=== PATIENT | female | born 1970 | race Caucasian/White ===

== ENCOUNTER 2018-07-17 12:08 | Inpatient (IN) | payer OTHER ==
[2018-07-17 13:39] LABS: ADD MAN DIFF? NO
[2018-07-17 13:41] LABS: BASOPHIL # 0.1 10^3/ul (0.0-0.1); BASOPHILS % 0.7 % (0.0-2.0); EOSINOPHILS # 0.1 10^3/ul (0.0-0.5); EOSINOPHILS % 1.1 % (0.0-7.0); HEMOGLOBIN 11.9 g/dl (12.0-16.0); LYMPHOCYTES # 1.7 10^3/ul (0.8-2.9); LYMPHOCYTES % 17.7 % (15.0-51.0); MEAN CORPUSCULAR HEMOGLOBIN 29.2 pg (29.0-33.0); MEAN CORPUSCULAR HGB CONC 32.2 g/dl (32.0-37.0); MEAN CORPUSCULAR VOLUME 90.9 fl (82.0-101.0); MEAN PLATELET VOLUME 8.8 fl (7.4-10.4); MONOCYTE # 0.7 10^3/ul (0.3-0.9); MONOCYTES % 7.3 % (0.0-11.0); NEUTROPHILS % 72.8 % (39.0-77.0); PLATELET COUNT 441 10^3/UL (140-415); RED BLOOD COUNT 4.07 10^6/ul (4.20-5.40); RED CELL DISTRIBUTION WIDTH 13.3 % (11.5-14.5)
[2018-07-17 13:41] LABS: WHITE BLOOD COUNT 9.6 10^3/ul (4.8-10.8)
[2018-07-17] MEDS: SOD CHLORIDE 0.9% 100 ML ×2 (13:46→18:10)
[2018-07-17] MEDS: IOHEXOL 300MG/ML 150 ML BTL ×2 (13:46→18:10)
[2018-07-17 14:01] LABS: ALANINE AMINOTRANSFERASE 17 IU/L (13-69); ALBUMIN 3.2 g/dl (3.3-4.9); ALKALINE PHOSPHATASE 84 IU/L (42-121); ANION GAP 8 (5-13); ASPARTATE AMINO TRANSFERASE 9 IU/L (15-46); BILIRUBIN,INDIRECT 0.2 mg/dl (0-1.1); BILIRUBIN,TOTAL 0.2 mg/dl (0.2-1.3); BLOOD UREA NITROGEN 11 mg/dl (7-20); CALCIUM 8.5 mg/dl (8.4-10.2); CARBON DIOXIDE 26 mmol/L (21-31); CHLORIDE 109 mmol/L (97-110); CREATININE 0.52 mg/dl (0.44-1.00); Estimated GFR > 60 mL/min (>60); GLUCOSE 87 mg/dl (70-220); INR 1.06; POTASSIUM 3.7 mmol/L (3.5-5.1); PROTIME 13.9 Sec (11.9-14.9); PT RATIO 1.1; SODIUM 143 mmol/L (135-144); TOTAL PROTEIN 6.1 g/dl (6.1-8.1)
[2018-07-17 14:02] LABS: PARTIAL THROMBOPLASTIN TIME 34.4 Sec (23.0-35.0)
[2018-07-17] MEDS ORDERED: NACL 0.9% 3 ML SYG IV (18:00)
[2018-07-17] MEDS ORDERED: IPRATROPIUM (NEB) 0.5 MG/2.5 ML AMP HHN (18:00)
[2018-07-17] MEDS ORDERED: LEVALBUTEROL (NEB) 1.25 MG/0.5 ML AMP HHN (18:00)
[2018-07-17] MEDS ORDERED: morphine 2 MG INJ IV (18:00)
[2018-07-17] MEDS ORDERED: ONDANSETRON 4 MG INJ IV (18:00)
[2018-07-17] MEDS ORDERED: HYDROCODONE/APAP (5/325) TAB PO (18:00)
[2018-07-17] MEDS: IPRATROPIUM (NEB) 0.5 MG/2.5 ML AMP HHN (20:00)
[2018-07-17] MEDS: LEVALBUTEROL (NEB) 1.25 MG/0.5 ML AMP HHN (20:00)
[2018-07-18 05:45] LABS: ADD MAN DIFF? NO
[2018-07-18 05:58] LABS: WHITE BLOOD COUNT 8.2 10^3/ul (4.8-10.8)
[2018-07-18 05:58] LABS: BASOPHIL # 0.1 10^3/ul (0.0-0.1); EOSINOPHILS # 0.2 10^3/ul (0.0-0.5); EOSINOPHILS % 2.3 % (0.0-7.0); HEMATOCRIT 35.7 % (37.0-47.0); HEMOGLOBIN 11.3 g/dl (12.0-16.0); LYMPHOCYTES # 1.7 10^3/ul (0.8-2.9); LYMPHOCYTES % 20.6 % (15.0-51.0); MEAN CORPUSCULAR HEMOGLOBIN 28.5 pg (29.0-33.0); MEAN CORPUSCULAR HGB CONC 31.7 g/dl (32.0-37.0); MEAN CORPUSCULAR VOLUME 90.2 fl (82.0-101.0); MEAN PLATELET VOLUME 9.3 fl (7.4-10.4); MONOCYTE # 0.7 10^3/ul (0.3-0.9); MONOCYTES % 8.9 % (0.0-11.0); NEUTROPHIL # 5.5 10^3/ul (1.6-7.5); NEUTROPHILS % 66.8 % (39.0-77.0); PLATELET COUNT 419 10^3/UL (140-415); RED BLOOD COUNT 3.96 10^6/ul (4.20-5.40); RED CELL DISTRIBUTION WIDTH 13.4 % (11.5-14.5)
[2018-07-18 06:15] LABS: ALANINE AMINOTRANSFERASE 10 IU/L (13-69); ALBUMIN 3.8 g/dl (3.3-4.9); ALBUMIN/GLOBULIN RATIO 1.11; ALKALINE PHOSPHATASE 100 IU/L (42-121); ANION GAP 5 (5-13); ASPARTATE AMINO TRANSFERASE 11 IU/L (15-46); BILIRUBIN,INDIRECT 0.3 mg/dl (0-1.1); BILIRUBIN,TOTAL 0.3 mg/dl (0.2-1.3); BLOOD UREA NITROGEN 10 mg/dl (7-20); CALCIUM 9.8 mg/dl (8.4-10.2); CARBON DIOXIDE 29 mmol/L (21-31); CHLORIDE 107 mmol/L (97-110); CREATININE 0.66 mg/dl (0.44-1.00); Estimated GFR > 60 mL/min (>60); GLUCOSE 98 mg/dl (70-220); POTASSIUM 4.1 mmol/L (3.5-5.1); SODIUM 141 mmol/L (135-144); TOTAL PROTEIN 7.2 g/dl (6.1-8.1)
[2018-07-18] MEDS: PANTOPRAZOLE (EC) 40 MG TAB PO (07:43)
[2018-07-18 08:43] LABS: LACTATE DEHYDROGENASE 431 IU/L (313-618)
[2018-07-18 08:51] LABS: IMMUNOGLOBULIN A 203 mg/dl (70-400); IMMUNOGLOBULIN G 1117 mg/dl (700-1600)
[2018-07-18 09:15] LABS: CARCINOEMBRYONIC ANTIGEN 4.4 ng/ml (0.0-5.0)
[2018-07-18] MEDS: LEVALBUTEROL (NEB) 1.25 MG/0.5 ML AMP HHN ×3 (09:37→22:56)
[2018-07-18] MEDS: IPRATROPIUM (NEB) 0.5 MG/2.5 ML AMP HHN ×3 (09:38→22:56)
[2018-07-18] MEDS ORDERED: NAPROXEN 500 MG TAB PO (10:00)
[2018-07-18 10:53] LABS: IMMUNOGLOBULIN M 76 mg/dl (40-230)
[2018-07-18] MEDS: ACETAMINOPHEN 325 MG TAB PO (13:57)
[2018-07-18 19:02] LABS: INR 0.94; PROTIME 12.7 Sec (11.9-14.9)
[2018-07-18 19:14] LABS: TROPONIN-I < 0.012 ng/ml (0.000-0.120)
[2018-07-18] MEDS ORDERED: morphine LIQ (10 MG/5 ML) CUP PO (22:30)
[2018-07-19 01:46] LABS: TROPONIN-I < 0.012 ng/ml (0.000-0.120)
[2018-07-19] MEDS: LEVALBUTEROL (NEB) 1.25 MG/0.5 ML AMP HHN ×2 (04:39→08:27)
[2018-07-19] MEDS: PANTOPRAZOLE (EC) 40 MG TAB PO (06:00)
[2018-07-19 06:06] LABS: ADD MAN DIFF? NO
[2018-07-19 06:13] LABS: BASOPHIL # 0.1 10^3/ul (0.0-0.1); BASOPHILS % 0.8 % (0.0-2.0); EOSINOPHILS # 0.1 10^3/ul (0.0-0.5); EOSINOPHILS % 1.1 % (0.0-7.0); HEMATOCRIT 34.5 % (37.0-47.0); HEMOGLOBIN 11.1 g/dl (12.0-16.0); LYMPHOCYTES # 1.5 10^3/ul (0.8-2.9); LYMPHOCYTES % 19.2 % (15.0-51.0); MEAN CORPUSCULAR HEMOGLOBIN 29.1 pg (29.0-33.0); MEAN CORPUSCULAR HGB CONC 32.2 g/dl (32.0-37.0); MEAN CORPUSCULAR VOLUME 90.3 fl (82.0-101.0); MONOCYTE # 0.7 10^3/ul (0.3-0.9); MONOCYTES % 8.7 % (0.0-11.0); NEUTROPHIL # 5.6 10^3/ul (1.6-7.5); NEUTROPHILS % 69.9 % (39.0-77.0); PLATELET COUNT 414 10^3/UL (140-415); RED BLOOD COUNT 3.82 10^6/ul (4.20-5.40); RED CELL DISTRIBUTION WIDTH 13.4 % (11.5-14.5)
[2018-07-19 06:13] LABS: WHITE BLOOD COUNT 7.9 10^3/ul (4.8-10.8)
[2018-07-19 06:43] LABS: ALBUMIN 3.2 g/dl (3.3-4.9); ANION GAP 11 (5-13); BLOOD UREA NITROGEN 9 mg/dl (7-20); CALCIUM 10.3 mg/dl (8.4-10.2); CARBON DIOXIDE 30 mmol/L (21-31); CHLORIDE 101 mmol/L (97-110); CREATININE 0.73 mg/dl (0.44-1.00); GLUCOSE 109 mg/dl (70-220); MAGNESIUM 1.9 mg/dl (1.7-2.5); PHOSPHORUS 4.9 mg/dl (2.5-4.9); POTASSIUM 4.4 mmol/L (3.5-5.1); SODIUM 142 mmol/L (135-144)
[2018-07-19 06:52] LABS: TROPONIN-I < 0.012 ng/ml (0.000-0.120)
[2018-07-19 07:27] LABS: PROTEIN, TOTAL 7.1 g/dL (6.1-8.1)
[2018-07-19] MEDS: IPRATROPIUM (NEB) 0.5 MG/2.5 ML AMP HHN (08:26)
[2018-07-19] MEDS ORDERED: ROCURONIUM 50 MG INJ (10:19)
[2018-07-19] MEDS ORDERED: PROPOFOL 20 ML (10:19)
[2018-07-19] MEDS ORDERED: SUCCINYLCHOLINE CHLORIDE 100 MG/5 ML SYG IV (10:19)
[2018-07-19] MEDS ORDERED: LIDOCAINE 2% (SDV) 5 ML INJ (10:19)
[2018-07-19] MEDS ORDERED: LIDOCAINE 1% (MPF) 10 ML INJ (10:47)
[2018-07-19] MEDS ORDERED: LIDOCAINE 2% (MDV) 20 ML INJ (10:48)
[2018-07-19] MEDS: LIDOCAINE 1% (MDV) 20 ML INJ INJ (10:55)
[2018-07-19] MEDS ORDERED: EPINEPHrine 0.1 MG/ML SYG (10:59)
[2018-07-19 11:11] LABS: BETA-2 MICROGLOBULIN 2.05 mg/L (< OR = 2.51)
[2018-07-19] MEDS ORDERED: METOCLOPRAMIDE 10 MG INJ (11:13)
[2018-07-19] MEDS ORDERED: ONDANSETRON 4 MG INJ (11:13)
[2018-07-19] MEDS ORDERED: ONDANSETRON 4 MG INJ IV (11:30)
[2018-07-19] MEDS ORDERED: MIDAZOLAM 1 MG/ML 2 ML INJ IV (11:30)
[2018-07-19] MEDS ORDERED: FENTAnyl 50 MCG/ML VIAL IV ×3 (11:30)
[2018-07-19] MEDS ORDERED: METOCLOPRAMIDE 10 MG INJ IV (11:30)
[2018-07-19] MEDS ORDERED: DIPHENHYDRAMINE 50 MG INJ IV (11:30)
[2018-07-19] MEDS ORDERED: MEPERIDINE 25 MG INJ IV (11:30)
[2018-07-19] MEDS: ACETAMINOPHEN 325 MG TAB PO (18:57)
[2018-07-19 23:16] LABS: ALBUMIN 3.4 g/dL (3.8-4.8); ALPHA-1-GLOBULINS 0.5 g/dL (0.2-0.3); ALPHA-2-GLOBULINS 1.2 g/dL (0.5-0.9); BETA 2 GLOBULINS 0.4 g/dL (0.2-0.5); BETA GLOBULINS 0.5 g/dL (0.4-0.6); GAMMA GLOBULINS 1.2 g/dL (0.8-1.7)
[2018-07-20] MEDS: PANTOPRAZOLE (EC) 40 MG TAB PO (05:38)
[2018-07-20 06:07] LABS: ADD MAN DIFF? NO
[2018-07-20 06:10] LABS: WHITE BLOOD COUNT 8.5 10^3/ul (4.8-10.8)
[2018-07-20 06:10] LABS: BASOPHIL # 0.1 10^3/ul (0.0-0.1); BASOPHILS % 0.8 % (0.0-2.0); EOSINOPHILS # 0.2 10^3/ul (0.0-0.5); HEMATOCRIT 35.8 % (37.0-47.0); HEMOGLOBIN 11.4 g/dl (12.0-16.0); LYMPHOCYTES # 1.7 10^3/ul (0.8-2.9); LYMPHOCYTES % 20.3 % (15.0-51.0); MEAN CORPUSCULAR HEMOGLOBIN 28.9 pg (29.0-33.0); MEAN CORPUSCULAR HGB CONC 31.8 g/dl (32.0-37.0); MEAN CORPUSCULAR VOLUME 90.9 fl (82.0-101.0); MONOCYTE # 0.8 10^3/ul (0.3-0.9); MONOCYTES % 9.2 % (0.0-11.0); NEUTROPHIL # 5.7 10^3/ul (1.6-7.5); NEUTROPHILS % 67.3 % (39.0-77.0); PLATELET COUNT 433 10^3/UL (140-415); RED BLOOD COUNT 3.94 10^6/ul (4.20-5.40); RED CELL DISTRIBUTION WIDTH 13.5 % (11.5-14.5)
[2018-07-20 06:38] LABS: ALBUMIN 4.2 g/dl (3.3-4.9); ANION GAP 11 (5-13); BLOOD UREA NITROGEN 10 mg/dl (7-20); CALCIUM 10.2 mg/dl (8.4-10.2); CARBON DIOXIDE 29 mmol/L (21-31); CHLORIDE 101 mmol/L (97-110); CREATININE 0.74 mg/dl (0.44-1.00); GLUCOSE 99 mg/dl (70-220); PHOSPHORUS 4.3 mg/dl (2.5-4.9); POTASSIUM 4.1 mmol/L (3.5-5.1); SODIUM 141 mmol/L (135-144)
[2018-07-20] MEDS: METOPROLOL 25 MG TAB PO ×2 (12:07→20:47)
[2018-07-20] MEDS: ACETAMINOPHEN 325 MG TAB PO (23:43)
[2018-07-21 05:12] LABS: ADD MAN DIFF? NO
[2018-07-21 05:17] LABS: WHITE BLOOD COUNT 8.1 10^3/ul (4.8-10.8)
[2018-07-21 05:17] LABS: BASOPHIL # 0.1 10^3/ul (0.0-0.1); BASOPHILS % 0.9 % (0.0-2.0); EOSINOPHILS # 0.2 10^3/ul (0.0-0.5); EOSINOPHILS % 2.5 % (0.0-7.0); HEMATOCRIT 36.2 % (37.0-47.0); HEMOGLOBIN 11.6 g/dl (12.0-16.0); LYMPHOCYTES # 2.4 10^3/ul (0.8-2.9); LYMPHOCYTES % 29.6 % (15.0-51.0); MEAN CORPUSCULAR HEMOGLOBIN 28.9 pg (29.0-33.0); MEAN CORPUSCULAR VOLUME 90.3 fl (82.0-101.0); MEAN PLATELET VOLUME 8.8 fl (7.4-10.4); MONOCYTE # 0.8 10^3/ul (0.3-0.9); MONOCYTES % 9.6 % (0.0-11.0); NEUTROPHIL # 4.6 10^3/ul (1.6-7.5); NEUTROPHILS % 57.2 % (39.0-77.0); PLATELET COUNT 426 10^3/UL (140-415); RED BLOOD COUNT 4.01 10^6/ul (4.20-5.40); RED CELL DISTRIBUTION WIDTH 13.3 % (11.5-14.5)
[2018-07-21 05:35] LABS: ALBUMIN 3.8 g/dl (3.3-4.9); ANION GAP 11 (5-13); BLOOD UREA NITROGEN 9 mg/dl (7-20); CARBON DIOXIDE 28 mmol/L (21-31); CHLORIDE 102 mmol/L (97-110); CREATININE 0.75 mg/dl (0.44-1.00); GLUCOSE 99 mg/dl (70-220); PHOSPHORUS 4.3 mg/dl (2.5-4.9); POTASSIUM 3.9 mmol/L (3.5-5.1); SODIUM 141 mmol/L (135-144)
[2018-07-21] MEDS: PANTOPRAZOLE (EC) 40 MG TAB PO (06:40)
[2018-07-21] MEDS: METOPROLOL 25 MG TAB PO (08:16)
== END 2018-07-21 14:32 | disposition home or self-care (01) | DRG 167 ==
LOC: FTE 12:08 → 6WM 17:58
PROC: 0BB38ZX Excision of Right Main Bronchus, Via Natural or Artificial Opening Endoscopic, Diagnostic (ICD-10-PCS; principal; 2018-07-19 09:30)
PROC: 0B9K8ZX Drainage of Right Lung, Via Natural or Artificial Opening Endoscopic, Diagnostic (ICD-10-PCS; 2018-07-19 09:30)
DX: C34.81 Malignant neoplasm of overlapping sites of right bronchus and lung (principal); I31.3 Pericardial effusion (noninflammatory); J90 Pleural effusion, not elsewhere classified; E44.0 Moderate protein-calorie malnutrition; Z68.1 Body mass index [BMI] 19.9 or less, adult; J98.19 Other pulmonary collapse; R51 Headache; R00.0 Tachycardia, unspecified; R03.0 Elevated blood-pressure reading, without diagnosis of hypertension; Z87.891 Personal history of nicotine dependence
CPT/HCPCS: 36415; 70486; 70553; 71045; 71260; 74177; 80053; 80069; 81025; 82378; 82784; 83615; 83735; 84155; 84165; 84443; 84484; 85025; 85610; 85730; 86320; 87040; 88104; 88305; 93005; 93306; 94640; 99285-25

== ENCOUNTER → 2019-02-15 | Outpatient (CLI) | payer OTHER ==
[2019-02-15] MEDS: IOHEXOL 300MG/ML 150 ML BTL (11:00)
[2019-02-15] MEDS: SOD CHLORIDE 0.9% 100 ML (11:00)
== END | disposition home or self-care (01) ==
LOC: C/S 09:45
DX: C34.81 Malignant neoplasm of overlapping sites of right bronchus and lung (principal); J98.11 Atelectasis; J43.2 Centrilobular emphysema; D18.09 Hemangioma of other sites; R59.1 Generalized enlarged lymph nodes
CPT/HCPCS: 71260; 74177